=== PATIENT | female | born 1980 | race Caucasian/White ===

== ENCOUNTER 2019-05-09 23:00 | Emergency (ER) | payer MEDICAID ==
[~2019-05-09] VITALS: Ht 152.4 cm; Wt 73.5 kg
[2019-05-09 23:30] VITALS: Ht 152.4 cm; Wt 73.5 kg
[2019-05-10 01:42] VITALS: BP 109/76
== END 2019-05-10 01:42 | disposition home or self-care (01) ==
LOC: ED 23:00
DX: J40 Bronchitis, not specified as acute or chronic (principal); Z98.890 Other specified postprocedural states